=== PATIENT | male | born 1990 | race Caucasian/White ===

== ENCOUNTER 2021-03-10 09:00 | Outpatient (CLI) | payer OTHER | END 2021-03-10 09:15 | disposition home or self-care (01) | LOC: PPH VACUNA 09:00 | PROVIDERS: ATTEND Emergency Medicine Pediatric Emergency Medicine | DX: Z23 Encounter for immunization (principal) ==

== ENCOUNTER 2021-09-26 17:13 | Outpatient (CLI) | payer OTHER | END 2021-09-26 18:00 | disposition home or self-care (01) | LOC: RAD 17:13 | PROVIDERS: ATTEND Physical Medicine & Rehabilitation | DX: M79.641 Pain in right hand (principal) ==

== ENCOUNTER 2021-10-27 15:14 | Outpatient (CLI) | payer OTHER | END 2021-10-27 15:19 | disposition home or self-care (01) | LOC: RAD 15:14 | PROVIDERS: ATTEND Physical Medicine & Rehabilitation | DX: M79.641 Pain in right hand (principal); S62.306A Unspecified fracture of fifth metacarpal bone, right hand, initial encounter for closed fracture ==

== ENCOUNTER 2021-11-30 08:00 | Outpatient (CLI) | payer OTHER | END 2021-11-30 08:05 | disposition home or self-care (01) | LOC: PPH VACUNA 08:00 | PROVIDERS: ATTEND Emergency Medicine Pediatric Emergency Medicine | DX: Z23 Encounter for immunization (principal) ==

== ENCOUNTER → 2022-04-21 | Emergency (ER) | payer OTHER ==
[~2022-04-21] VITALS: Ht 177.8 cm; Wt 81.6 kg
[~2022-04-21] MED LIST: LEVSIN/SL0.125 MG SL; PEPCID40 MG PO; PROTONIX40 MG PO; ZOFRAN8 MG PO
== END | disposition home or self-care (01) ==
LOC: ER 00:01
DX: R10.13 Epigastric pain (principal)

== ENCOUNTER → 2022-05-18 | Outpatient (CLI) | payer OTHER | END | disposition home or self-care (01) | LOC: SONOGRAMA 06:57 | PROVIDERS: ATTEND Internal Medicine Gastroenterology | DX: R10.84 Generalized abdominal pain (principal) ==

== ENCOUNTER 2022-07-12 08:44 | Outpatient (CLI) | payer OTHER | END 2022-07-12 08:45 | disposition home or self-care (01) | LOC: NUCLEAR 08:44 | PROVIDERS: ATTEND Internal Medicine Gastroenterology | DX: K81.1 Chronic cholecystitis (principal) ==

== ENCOUNTER 2022-12-15 10:00 | Outpatient (CLI) | payer OTHER | END 2022-12-15 10:10 | disposition home or self-care (01) | LOC: PPH VACUNA 10:00 | PROVIDERS: ATTEND Emergency Medicine Pediatric Emergency Medicine | DX: Z23 Encounter for immunization (principal) ==